=== PATIENT | male | born 1955 | race Caucasian/White ===

== ENCOUNTER 2022-10-12 11:24 | Emergency (ER) | payer MEDICARE, OTHER, SELFPAY ==
--- NOTE | ~2022-10-12 | XR_ITS ---
EXAMINATION: XR CHEST CLINICAL INFORMATION: Chest pain. Covid positive. COMPARISON: None TECHNIQUE: 2 views of the chest were obtained. FINDINGS: There is some faint hazy density at the lung bases but which appears to be related to overlying soft tissue structures rather than confluent parenchymal disease. No pneumothorax or pleural effusion is evident. Heart normal size. No evidence of pulmonary edema. XR/XR chest 2V IMPRESSION: No definite acute parenchymal disease identified.
[2022-10-12 11:32] VITALS: BP 143/84; PULSE 79; RESP 19; TEMP 36.6; O2SAT 97; BMI 29.9
--- NOTE | 2022-10-12 11:32 | ECG_ITS ---
Test Reason : chest pain Blood Pressure : / mmHG Vent. Rate : 076 BPM Atrial Rate : 076 BPM P-R Int : 136 ms QRS Dur : 092 ms QT Int : 400 ms P-R-T Axes : 051 -36 029 degrees QTc Int : 450 ms Normal sinus rhythm Left axis deviation Abnormal ECG No previous ECGs available Referred By: Haylie Hazel Electronically Signed By:Puma Costello
--- NOTE | 2022-10-12 11:33 | ED.CHESTPAIN ---
HPI - Chest Pain General Chief Complaint: Chest Pain <CONSUELO Oropeza Last Filed: 10/12/22 14:54> Stated Complaint: chest /lung pain <CONSUELO Oropeza Last Filed: 10/12/22 14:54> Time Seen by Provider: 10/12/22 14:07 <CONSUELO Oropeza Last Filed: 10/12/22 14:54> Source: patient <CONSUELO Oropeza Last Filed: 10/12/22 14:54> Mode of arrival: ambulatory <CONSUELO Oropeza Last Filed: 10/12/22 14:54> Limitations: no limitations <CONSUELO Oropeza Last Filed: 10/12/22 14:54> History of Present Illness HPI narrative: 66yoM c PMHx BPH who is presenting to the ER with complaints of chest pain and cough for at least 1 month. Was referred here from the [facility] for further evaluation treatment. He was treated by Georgi, [employer] for a PNA with doxycycline approximately 3-4 weeks ago reports his chest pain improved although symptoms did not completely resolve. Reports he went back to the urgent care today for further evaluation treatment due to persistent cough and has some chest pain this morning that has resided. He tested positive for COVID today at the urgent care. He denies any dizziness, change in vision, jaw pain, paresthesias, shortness of breath, dyspnea on exertion, orthopnea, palpitations, nausea/vomiting/diarrhea, abdominal pain, back pain, flank pain, lower extremity edema, calf tenderness, recent travel or sick contacts or any other symptoms complaints or concerns at this time. <CONSUELO Oropeza Last Filed: 10/12/22 14:54> MD complaint: chest pain <CONSUELO Oropeza Last Filed: 10/12/22 14:54> Onset (ago): hour(s) (This morning) <CONSUELO Oropeza Last Filed: 10/12/22 14:54> Timing of current episode: episodic and now resolved <CONSUELO Oropeza Last Filed: 10/12/22 14:54> Prior episodes: No <CONSUELO Oropeza Last Filed: 10/12/22 14:54> Pain location: substernal <CONSUELO Oropeza Last Filed: 10/12/22 14:54> Pain radiation: none <CONSUELO Oropeza Last Filed: 10/12/22 14:54> Severity: mild <CONSUELO Oropeza Last Filed: 10/12/22 14:54> Quality: aching <CONSUELO Oropeza Last Filed: 10/12/22 14:54> Relieving factors: nothing <CONSUELO Oropeza Last Filed: 10/12/22 14:54> Exacerbating factors: nothing <CONSUELO Oropeza Last Filed: 10/12/22 14:54> Context: recent illness (Was recently diagnosed with pneumonia 2-3 weeks ago and started on doxycycline urgent care finish antibiotic course) <CONSUELO Oropeza Last Filed: 10/12/22 14:54> Associated symptoms: cough <CONSUELO Oropeza Last Filed: 10/12/22 14:54> Treatment prior to arrival: none <CONSUELO Oropeza Last Filed: 10/12/22 14:54> Risk Factors Coronary artery disease risk factors: none <CONSUELO Oropeza Last Filed: 10/12/22 14:54> Thoracic aortic dissection risk factors: none <CONSUELO Oropzea Last Filed: 10/12/22 14:54> Related Data Home Medications: Previous Rx's Medication Instructions Recorded azithromycin 250 mg tablet See Rx Instructions PO .COMPLEX #6 10/12/22 tabs cefuroxime axetil 250 mg tablet 250 mg PO BID 7 days #14 tabs 10/12/22 <CONSUELO Oropeza Last Filed: 10/12/22 14:54> Allergies/Adverse Reactions: Allergies Allergy/AdvReac Type Severity Reaction Status Date / Time No Known Allergies Allergy Verified 10/12/22 11:32 <CONSUELO Oropeza Last Filed: 10/12/22 14:54> Review of Systems Review of Systems: Constitutional : No Weight loss, No Fever, No Chills, No Night Sweats, No Fatigue, No Malaise ENT/Mouth : No Hearing loss, No Ear Pain, No Nasal Congestion, No Sinus Pain, No Hoarseness, No sore throat, No Rhinorrhea, No Swallowing Difficulty Eyes: No Eye Pain, No Swelling, No Redness, No Foreign Body, No Discharge, No Vision Changes Cardiovascular : + resolved Chest Pain, No SOB, No Dyspnea on Exertion, No Orthopnea, No Edema, No Palpitations Respiratory : + Cough, No Sputum, No Wheezing, No Smoke Exposure, No Dyspnea Gastrointestinal : No Nausea, No Vomiting, No Diarrhea, No Constipation, No abdominal Pain, No Hematochezia, No Melena Genitourinary : no irregular bleeding, No Dysuria, No Urinary Frequency, No Hematuria, No Urinary Incontinence, No Urgency, No Flank Pain, No Urinary Flow Changes, No Hesitancy Musculoskeletal : No joint pain, No Myalgias, No Joint Swelling Skin : No Skin Lesions, No rash Neuro : No Weakness, No Numbness, No Paresthesias, No Loss of Consciousness, No Dizziness, No Headache Psych : No Anxiety/Panic, No Depression, No SI/HI/AH/VH, No Social Issues, Heme/Lymph: No Bruising, No Bleeding,No Lymphadenopathy Endocrine : No Polyuria, No Polydipsia, No Temperature Intolerance <CONSUELO Oropeza - Last Filed: 10/12/22 14:54> Yes all other systems are reviewed and are negative <CONSUELO Oropeza - Last Filed: 10/12/22 14:54> [facility] Past Medical History Attestation statement: The following information was validated with the patient. <CONSUELO Oropeza - Last Filed: 10/12/22 14:54> Source: old records reviewed and nursing notes reviewed <CONSUELO Oropeza - Last Filed: 10/12/22 14:54> Social History Social History: Social History Advance Directives: No <CONSUELO Oropeza - Last Filed: 10/12/22 14:54> Physical Exam Vital Signs: Vital Signs: Last Vital Signs Temp 98 F 10/12/22 11:32 Pulse 79 10/12/22 11:32 Resp 19 10/12/22 11:32 BP 143/84 H 10/12/22 11:32 Pulse Ox 97 10/12/22 11:32 O2 Del Method 10/12/22 11:32 BMI result Body Mass Index 29.9 vital signs have been reviewed as normal and appeared to be correct. Blood pressure normal. Heart rate normal. Respiration rate normal. Temperature normal. Oxygen saturation normal. <CONSUELO Oropeza - Last Filed: 10/12/22 14:54> Vital Signs: Last Vital Signs Temp 98 F 10/12/22 11:32 Pulse 79 10/12/22 11:32 Resp 19 10/12/22 11:32 BP 143/84 H 10/12/22 11:32 Pulse Ox 97 10/12/22 11:32 O2 Del Method 10/12/22 11:32 BMI result Body Mass Index 29.9 <Aldo Rodarte MD - Last Filed: 10/12/22 16:28> Appearance: Alert. Oriented X3. No acute distress. Head: Normal external exam. Normocephalic. Atraumatic. Eyes: PERRLA. EOMI. Conjunctiva and sclera normal. Eyelids normal. ENT: EAC normal. TM's Normal. Pharynx normal. Uvula midline. Moist mucous membranes. No lesions/ulcerations or masses noted on the tongue. Normal voice. No trismus noted. No drooling noted. No muffled voice noted. Neck: Normal inspection. Neck supple. FROM. No adenopathy. Thyroid Normal. No tracheal deviation noted. No crepitus is noted. No meningeal signs. No neck mass noted. No signs of trauma noted. CVS: Normal heart rate and rhythm. Heart sound normal. Pulses normal throughout. No murmurs/rales/gallops. Respiratory: No respiratory distress. Painless inspiration. Breath sounds normal. No wheezes/rales/rhonchi noted. Chest nontender. No crepitus is noted. No accessory muscle usage noted or decreased air movement noted. No signs of trauma. Abdomen: Soft and nontender. Nondistended. No guarding. No rigidity. Bowel sounds normal in all 4 quadrants. No distention noted. No organomegaly noted. No visible injury noted. No rebound tenderness. Negative Rovsing sign. Negative obturator's sign. Negative psoas sign. Negative Mazariegos sign. Back: No CVA tenderness. Full range of motion noted. Nontender. No signs of trauma. Patient neuro intact bilaterally and distally on all 4 extremities. Patient's reflexes intact bilaterally and distally on all 4 extremities. No rashes/lesion/induration/fluctuance or signs of infection noted. Skin: Skin warm and dry. Normal skin color. Normal skin turgor. No rashes/lesions/lacerations noted. Extremities: No lower extremity edema. No calf tenderness is noted. Extremities exhibit normal range of motion and nontender. Neuro: Oriented X 3. No motor deficit. No sensory deficit. Reflexes normal. Normal steady gait. No focal neuro deficits noted. CN's II-XII intact bilaterally? Vascular: + radial pulses/+ 2 distal pedal pulses/+2 dorsalis pedis b/l. Normal cap refill. No cyanosis noted to upper extremity nails and lower extremity toes nails. <CONSUELO Oropeza - Last Filed: 10/12/22 14:54> Course Course Course Narrative: MARIA LUZ- 11:30AM - 66yoM c PMHx BPH who is presenting to the ER with complaints of chest pain/shortness of breath and cough for at least 1 month. Was referred here from the [facility] for further evaluation treatment. He was treated by Georig, [employer] for a PNA with doxycycline approximately 3-4 weeks ago reports his chest pain improved although symptoms do not completely resolve. Reports he went back to the urgent care today for further evaluation treatment due to chest pain is worsening. Reports he still has the residual cough. He tested positive for COVID today at the urgent care. Plan: Labs COVID/RSV/flu swab, chest x-ray and EKG ordered at this time. Patient sent back to the waiting room to be evaluated in the ED. <CONSUELO Oropeza - Last Filed: 10/12/22 14:54> Reevaluation(s) Reevaluation #1: Labs reviewed - carbon dioxide 20. Total bilirubin 1.1. Patient positive for COVID. Negative for RSV and flu. Otherwise all other labs are within normal limits Imaging Chest x-ray revealed some faint hazy density at the lung bases which could be overlying soft tissue structures rather than parenchymal disease. EKG normal sinus rhythm with ventricular rate of 76 with left axis deviation no acute ischemic change are noted. No prior EKGs to compare to at this time Patient reports that he feels much better and just has this residual cough does not have this chest pain reports that he might just need another course of antibiotics would like to go home. Due to his chest x-ray reporting some faint hazy density and him being positive for COVID will start another course of antibiotics. DC home with instructions return if any new or worsening symptoms and follow-up with primary care provider. Patient understands agrees with this plan. <CONSUELO Oropeza - Last Filed: 10/12/22 14:54> Time: 14:30 <CONSUELO Oropeza - Last Filed: 10/12/22 14:54> Medical Decision Making Lab Data MDM Lab Attestation statement: I reviewed the patient's lab results. <CONSUELO Oropeza - Last Filed: 10/12/22 14:54> Result Diagrams: 10/12/22 11:57 10/12/22 11:57 <CONSUELO Oropeza - Last Filed: 10/12/22 14:54> Labs: Lab Results 10/12/22 10/12/22 10/12/22 Range/Units 11:57 11:57 11:57 WBC 5.8 (4.8-10.8) X10*3/uL RBC 5.23 (4.60-5.80) X10*6/uL Hgb 14.7 (14.0-18.0) g/dl Hct 45.2 (42.0-52.0) % MCV 86.4 (80.0-98.0) fL MCH 28.1 (27.0-33.0) pg MCHC 32.5 (31.0-36.0) g/dl RDW 13.9 (11.0-16.0) % Plt Count 209 (160-400) X10*3/uL MPV 10.1 (9.4-12.4) fL Immature Gran % (Auto) 0.3 (0.0-0.4) % Neut % (Auto) 49.3 (45-73) % Lymph % (Auto) 36.2 (20-40) % Pratt % (Auto) 13.0 H (2-11) % Eos % (Auto) 0.9 (0-4) % Baso % (Auto) 0.3 (0-2) % Lymph # (Auto) 2.1 (1.2-4.9) X10*3/uL Pratt # (Auto) 0.8 (0.1-1.2) X10*3/uL Eos # (Auto) 0.1 (0.0-0.4) X10*3/uL Baso # (Auto) 0.0 (0.0-0.2) X10*3/uL Abs Immat Gran (auto) 0.02 (0.00-0.03) X10*3/uL Absolute Neuts (auto) 2.9 (2.0-8.3) x10*3/uL Absolute Nucleated RBC 0.000 (0.0-0.012) X10*3/uL Nucleated RBC % (auto) 0.0 (0.0-0.2) /100WBC PT 11.9 (10.0-13.1) SEC INR 1.0 (0.9-1.1) Sodium 137 (135-145) mmol/L Potassium 4.4 (3.3-5.1) mmol/L Chloride 107 (96-108) mmol/L Carbon Dioxide 20 L (22-29) mmol/L Anion Gap 14 (12-20) BUN 13 (9-16) mg/dL Creatinine 1.25 (0.5-1.4) mg/dL Estim Creat Clear Calc 78.5 Estimated GFR 58 Random Glucose 92 (60-115) mg/dL Calcium 8.9 (8.4-10.2) mg/dL Magnesium 2.2 (1.6-2.6) mg/dL Total Bilirubin 1.1 H (0.0-1.0) mg/dL AST 25 (5-37) U/L ALT 33 (0-40) U/L Alkaline Phosphatase 73 (39-117) U/L Troponin I High Sens (<3.5-35.0) ng/L B-Natriuretic Peptide (<100) pg/mL Total Protein 7.2 (6.5-8.0) g/dL Albumin 3.8 (3.5-5.0) g/dL Influenza Type A (PCR) (Negative) Influenza Type B (PCR) (Negative) RSV RNA Qual (PCR) (Negative) SARS-CoV-2 RNA (RT-PCR) (Negative) 10/12/22 10/12/22 10/12/22 Range/Units 11:57 11:57 11:57 WBC (4.8-10.8) X10*3/uL RBC (4.60-5.80) X10*6/uL Hgb (14.0-18.0) g/dl Hct (42.0-52.0) % MCV (80.0-98.0) fL MCH (27.0-33.0) pg MCHC (31.0-36.0) g/dl RDW (11.0-16.0) % Plt Count (160-400) X10*3/uL MPV (9.4-12.4) fL Immature Gran % (Auto) (0.0-0.4) % Neut % (Auto) (45-73) % Lymph % (Auto) (20-40) % Pratt % (Auto) (2-11) % Eos % (Auto) (0-4) % Baso % (Auto) (0-2) % Lymph # (Auto) (1.2-4.9) X10*3/uL Pratt # (Auto) (0.1-1.2) X10*3/uL Eos # (Auto) (0.0-0.4) X10*3/uL Baso # (Auto) (0.0-0.2) X10*3/uL Abs Immat Gran (auto) (0.00-0.03) X10*3/uL Absolute Neuts (auto) (2.0-8.3) x10*3/uL Absolute Nucleated RBC (0.0-0.012) X10*3/uL Nucleated RBC % (auto) (0.0-0.2) /100WBC PT (10.0-13.1) SEC INR (0.9-1.1) Sodium (135-145) mmol/L Potassium (3.3-5.1) mmol/L Chloride (96-108) mmol/L Carbon Dioxide (22-29) mmol/L Anion Gap (12-20) BUN (9-16) mg/dL Creatinine (0.5-1.4) mg/dL Estim Creat Clear Calc Estimated GFR Random Glucose (60-115) mg/dL Calcium (8.4-10.2) mg/dL Magnesium (1.6-2.6) mg/dL Total Bilirubin (0.0-1.0) mg/dL AST (5-37) U/L ALT (0-40) U/L Alkaline Phosphatase (39-117) U/L Troponin I High Sens < 3.5 (<3.5-35.0) ng/L B-Natriuretic Peptide 20 (<100) pg/mL Total Protein (6.5-8.0) g/dL Albumin (3.5-5.0) g/dL Influenza Type A (PCR) NEGATIVE (Negative) Influenza Type B (PCR) NEGATIVE (Negative) RSV RNA Qual (PCR) NEGATIVE (Negative) SARS-CoV-2 RNA (RT-PCR) POSITIVE A (Negative) <CONSUELO Oropeza - Last Filed: 10/12/22 14:54> Lab Results 10/12/22 10/12/22 10/12/22 Range/Units 11:57 11:57 11:57 WBC 5.8 (4.8-10.8) X10*3/uL RBC 5.23 (4.60-5.80) X10*6/uL Hgb 14.7 (14.0-18.0) g/dl Hct 45.2 (42.0-52.0) % MCV 86.4 (80.0-98.0) fL MCH 28.1 (27.0-33.0) pg MCHC 32.5 (31.0-36.0) g/dl RDW 13.9 (11.0-16.0) % Plt Count 209 (160-400) X10*3/uL MPV 10.1 (9.4-12.4) fL Immature Gran % (Auto) 0.3 (0.0-0.4) % Neut % (Auto) 49.3 (45-73) % Lymph % (Auto) 36.2 (20-40) % Pratt % (Auto) 13.0 H (2-11) % Eos % (Auto) 0.9 (0-4) % Baso % (Auto) 0.3 (0-2) % Lymph # (Auto) 2.1 (1.2-4.9) X10*3/uL Pratt # (Auto) 0.8 (0.1-1.2) X10*3/uL Eos # (Auto) 0.1 (0.0-0.4) X10*3/uL Baso # (Auto) 0.0 (0.0-0.2) X10*3/uL Abs Immat Gran (auto) 0.02 (0.00-0.03) X10*3/uL Absolute Neuts (auto) 2.9 (2.0-8.3) x10*3/uL Absolute Nucleated RBC 0.000 (0.0-0.012) X10*3/uL Nucleated RBC % (auto) 0.0 (0.0-0.2) /100WBC PT 11.9 (10.0-13.1) SEC INR 1.0 (0.9-1.1) Sodium 137 (135-145) mmol/L Potassium 4.4 (3.3-5.1) mmol/L Chloride 107 (96-108) mmol/L Carbon Dioxide 20 L (22-29) mmol/L Anion Gap 14 (12-20) BUN 13 (9-16) mg/dL Creatinine 1.25 (0.5-1.4) mg/dL Estim Creat Clear Calc 78.5 Estimated GFR 58 Random Glucose 92 (60-115) mg/dL Calcium 8.9 (8.4-10.2) mg/dL Magnesium 2.2 (1.6-2.6) mg/dL Total Bilirubin 1.1 H (0.0-1.0) mg/dL AST 25 (5-37) U/L ALT 33 (0-40) U/L Alkaline Phosphatase 73 (39-117) U/L Troponin I High Sens (<3.5-35.0) ng/L B-Natriuretic Peptide (<100) pg/mL Total Protein 7.2 (6.5-8.0) g/dL Albumin 3.8 (3.5-5.0) g/dL Influenza Type A (PCR) (Negative) Influenza Type B (PCR) (Negative) RSV RNA Qual (PCR) (Negative) SARS-CoV-2 RNA (RT-PCR) (Negative) 10/12/22 10/12/22 10/12/22 Range/Units 11:57 11:57 11:57 WBC (4.8-10.8) X10*3/uL RBC (4.60-5.80) X10*6/uL Hgb (14.0-18.0) g/dl Hct (42.0-52.0) % MCV (80.0-98.0) fL MCH (27.0-33.0) pg MCHC (31.0-36.0) g/dl RDW (11.0-16.0) % Plt Count (160-400) X10*3/uL MPV (9.4-12.4) fL Immature Gran % (Auto) (0.0-0.4) % Neut % (Auto) (45-73) % Lymph % (Auto) (20-40) % Pratt % (Auto) (2-11) % Eos % (Auto) (0-4) % Baso % (Auto) (0-2) % Lymph # (Auto) (1.2-4.9) X10*3/uL Pratt # (Auto) (0.1-1.2) X10*3/uL Eos # (Auto) (0.0-0.4) X10*3/uL Baso # (Auto) (0.0-0.2) X10*3/uL Abs Immat Gran (auto) (0.00-0.03) X10*3/uL Absolute Neuts (auto) (2.0-8.3) x10*3/uL Absolute Nucleated RBC (0.0-0.012) X10*3/uL Nucleated RBC % (auto) (0.0-0.2) /100WBC PT (10.0-13.1) SEC INR (0.9-1.1) Sodium (135-145) mmol/L Potassium (3.3-5.1) mmol/L Chloride (96-108) mmol/L Carbon Dioxide (22-29) mmol/L Anion Gap (12-20) BUN (9-16) mg/dL Creatinine (0.5-1.4) mg/dL Estim Creat Clear Calc Estimated GFR Random Glucose (60-115) mg/dL Calcium (8.4-10.2) mg/dL Magnesium (1.6-2.6) mg/dL Total Bilirubin (0.0-1.0) mg/dL AST (5-37) U/L ALT (0-40) U/L Alkaline Phosphatase (39-117) U/L Troponin I High Sens < 3.5 (<3.5-35.0) ng/L B-Natriuretic Peptide 20 (<100) pg/mL Total Protein (6.5-8.0) g/dL Albumin (3.5-5.0) g/dL Influenza Type A (PCR) NEGATIVE (Negative) Influenza Type B (PCR) NEGATIVE (Negative) RSV RNA Qual (PCR) NEGATIVE (Negative) SARS-CoV-2 RNA (RT-PCR) POSITIVE A (Negative) <Aldo Rodarte MD - Last Filed: 10/12/22 16:28> Independent Interpretation I performed an independent interpretation of an: EKG (Normal sinus rhythm with ventricular rate of 76 with left axis deviation no acute ischemic change are noted. No prior EKGs to compare to at this time.) and Plain X-Ray (Chest x-ray revealed some faint hazy density at lung bases I reviewed this with the patient myself.) <CONSUELO Oropeza - Last Filed: 10/12/22 14:54> Radiology Impression Discussion of test interpretation with radiology: I have reviewed the radiologist's reading. <CONSUELO Oropeza - Last Filed: 10/12/22 14:54> Radiologist Impression: FINDINGS: There is some faint hazy density at the lung bases but which appears to be related to overlying soft tissue structures rather than confluent parenchymal disease. No pneumothorax or pleural effusion is evident. Heart normal size. No evidence of pulmonary edema. XR/XR chest 2V IMPRESSION: No definite acute parenchymal disease identified. <CONSUELO Oropeza Last Filed: 10/12/22 14:54> Prescription Management I considered prescription management with: Antibiotic <CONSUELO Oropeza Last Filed: 10/12/22 14:54> Attestation Attending Attestation: I reviewed RANGE EXAMINER/PA/Resident note, assessment and plan. I agree with the documentation, assessment and plan unless otherwise stated. <Aldo Rodarte MD - Last Filed: 10/12/22 16:28> Discharge Plan Discharge Clinical Impression: COVID-19 <CONSUELO Oropeza - Last Filed: 10/12/22 14:54> Patient Disposition: Home, Self-Care <CONSUELO Oropeza Last Filed: 10/12/22 14:54> Instructions: COVID-19 (Coronavirus Disease 2019) (ED) <CONSUELO Oropeza Last Filed: 10/12/22 14:54> Prescriptions: New azithromycin 250 mg tablet See Rx Instructions PO .COMPLEX Qty: 6 0RF Rx Instructions: take 500 mg today (day 1), then 250 mg for 4 days (days 2-5) cefuroxime axetil 250 mg tablet 250 mg PO BID 7 Days Qty: 14 0RF <CONSUELO Oropeza - Last Filed: 10/12/22 14:54> Referrals: Tapan Munoz MD [Primary Care Provider] - 1 week <CONSUELO Oropeza - Last Filed: 10/12/22 14:54> Interventions: ED Discharge Assessment Last Done: 10/12/22 14:10 <CONSUELO Oropeza - Last Filed: 10/12/22 14:54> Discharge Date/Time: 10/12/22 14:10 <CONSUELO Oropeza - Last Filed: 10/12/22 14:54>
[2022-10-12 12:02] LABS: MANUAL DIFF FLAG NO
[2022-10-12 12:05] LABS: Basophils Percent Auto 0.3 % (0-2); Eosinophils Absolute Auto 0.1 X10*3/uL (0.0-0.4); Eosinophils Percent Auto 0.9 % (0-4); Hematocrit 45.2 % (42.0-52.0); Hemoglobin 14.7 g/dl (14.0-18.0); Imm Gran Abs Auto 0.02 X10*3/uL (0.00-0.03); Imm Gran Pct Auto 0.3 % (0.0-0.4); Lymphocytes Absolute Auto 2.1 X10*3/uL (1.2-4.9); Lymphocytes Percent Auto 36.2 % (20-40); Mean Corpuscular HGB Conc 32.5 g/dl (31.0-36.0); Mean Corpuscular Hemoglobin 28.1 pg (27.0-33.0); Mean Corpuscular Volume 86.4 fL (80.0-98.0); Mean Platelet Volume 10.1 fL (9.4-12.4); Monocytes Absolute Auto 0.8 X10*3/uL (0.1-1.2); Neutrophils Absolute Auto 2.9 x10*3/uL (2.0-8.3); Neutrophils Percent Auto 49.3 % (45-73); Platelet Count 209 X10*3/uL (160-400); Red Blood Count 5.23 X10*6/uL (4.60-5.80); Red Cell Distribution Width 13.9 % (11.0-16.0); White Blood Count 5.8 X10*3/uL (4.8-10.8)
[2022-10-12 12:09] LABS: Prothrombin Time 11.9 SEC (10.0-13.1)
[2022-10-12 12:21] LABS: Alanine Aminotransferase 33 U/L (0-40); Albumin Level 3.8 g/dL (3.5-5.0); Alkaline Phosphatase 73 U/L (39-117); Anion Gap 14 (12-20); Aspartate Amino Transferase 25 U/L (5-37); Bilirubin Total 1.1 mg/dL (0.0-1.0); Blood Urea Nitrogen 13 mg/dL (9-16); Calcium 8.9 mg/dL (8.4-10.2); Carbon Dioxide 20 mmol/L (22-29); Chloride 107 mmol/L (96-108); Creatinine Clr Calc Pharmacy 78.5; Estimated Glomerular Filt Rate 58; Glucose Random 92 mg/dL (60-115); Magnesium 2.2 mg/dL (1.6-2.6); Potassium 4.4 mmol/L (3.3-5.1); Sodium 137 mmol/L (135-145); Total Protein 7.2 g/dL (6.5-8.0)
[2022-10-12 12:27] LABS: Troponin-I High Sensitivity < 3.5 ng/L (<3.5-35.0)
[2022-10-12 12:49] LABS: Influenza A PCR NEGATIVE (Negative); Influenza B PCR NEGATIVE (Negative); Resp Syncy Virus RNA Qual PCR NEGATIVE (Negative); SARS COV2 PCR INHOUSE POSITIVE (Negative)
--- NOTE | 2022-10-12 14:07 | PC.NURSE ---
pt does not have cp, states he had it for a short time this morning, occasional cough, states he is not in any distress, skin wpd, nad
[2022-10-12 14:44] LABS: B Type Natriuretic Peptide 20 pg/mL (<100)
== END 2022-10-12 14:10 | disposition home or self-care (01) ==
PROVIDERS: Physician Assistant Medical; Emergency Provider Emergency Medicine; PCP Internal Medicine
DX: R07.89 Other chest pain (principal); R06.02 Shortness of breath; Z20.822 Contact with and (suspected) exposure to COVID-19; Z20.828 Contact with and (suspected) exposure to other viral communicable diseases; Z79.899 Other long term (current) drug therapy
CPT/HCPCS: 0241U; 71046; 80053; 83735; 83880; 84484; 85025; 85610; 93005; 99282; 99283